=== PATIENT | male | born 1985 | race Caucasian/White ===

== ENCOUNTER 2018-06-15 19:54 | Emergency (ER) | payer BC ==
[2018-06-15] MEDS ORDERED: Ketorolac 60 MG/2 ML SDV IM ONE (20:34)
[2018-06-15] MEDS ORDERED: Cyclobenzaprine 10 MG Tab PO ONE (20:37)
[2018-06-15] MEDS ORDERED: Acetaminophen/oxyCODONE 325-5 MG Tab PO ONE ×2 (20:38→21:42)
--- NOTE | 2018-06-15 20:43 | EDM.PDOC ---
ED HPI GENERAL MEDICAL PROBLEM - General Chief Complaint: Back Pain or Injury Stated Complaint: POSSIBLE KIDNEY STONES Time Seen by Provider: 06/15/18 20:25 Source of Information: Reports: Patient, RN History Limitations: Reports: Other (no old records) - History of Present Illness INITIAL COMMENTS - FREE TEXT/NARRATIVE: 33 was attempting to lift an ice house and developed low back pain. Pain is worse with movement. No radiation down his legs. No bowel or bladder dysfunction. Has a hx of kidney stones and thought this felt similar. Is from [place]. No tx prior to arrival. Onset: Today Onset Date: 06/15/18 Onset Time: 17:00 Duration: Hour(s): Location: Reports: Back (low) Quality: Reports: Ache Severity: Moderate Improves with: Reports: Rest Worsens with: Reports: Movement Context: Reports: Other (see HPI) Associated Symptoms: Reports: No Other Symptoms Treatments CHARGER TESTER: Reports: Other (see below) (none) Lower Back Pain Score (Numeric/FACES): 3 - Related Data Allergies Allergy/AdvReac Type Severity Reaction Status Date / Time No Known Allergies Allergy Verified 06/15/18 20:25 Home Meds: Home Meds Pantoprazole Sodium [Protonix] 1 tab PO DAILY 06/15/18 [History] atorvaSTATin Calcium [Atorvastatin Calcium] 1 tab PO DAILY 06/15/18 [History] Past Medical History Cardiovascular History: Reports: High Cholesterol Gastrointestinal History: Reports: PUD Genitourinary History: Reports: Renal Calculus - Past Surgical History GI Surgical History: Reports: EGD Male Surgical History: Reports: Kidney Stone Extraction Musculoskeletal Surgical History: Reports: Shoulder Surgery, Other (See Below) Other Musculoskeletal Surgeries/Procedures:: bilateral shoulder surgery Social & Family History - Tobacco Use Smoking Status *Q: Never Smoker - Recreational Drug Use Recreational Drug Use: No ED ROS GENERAL - Review of Systems Review Of Systems: See Below Constitutional: Reports: No Symptoms HEENT: Reports: No Symptoms Respiratory: Reports: No Symptoms Cardiovascular: Reports: No Symptoms GI/Abdominal: Reports: No Symptoms : Reports: No Symptoms Musculoskeletal: Reports: Back Pain (low) Skin: Reports: No Symptoms Neurological: Reports: No Symptoms ED EXAM,LOWER BACK PAIN/INJURY - Physical Exam Exam: See Below Exam Limited By: No Limitations General Appearance: Alert, WD/WN, No Apparent Distress, Obese Eye Exam: Bilateral Eye: Normal Inspection Ears: Normal External Exam, Normal Canal, Hearing Grossly Normal Nose: Normal Inspection, No Blood Throat/Mouth: Normal Lips, Normal Oropharynx, Normal Voice, No Airway Compromise Head: Atraumatic, Normocephalic Neck: Normal Inspection Respiratory/Chest: No Respiratory Distress, Lungs Clear, Normal Breath Sounds, No Accessory Muscle Use Cardiovascular: Regular Rate, Rhythm Back Exam: Normal Inspection, Decreased Range of Motion, Muscle Spasm (lumbar, paraspinous muscles), Paraspinal Tenderness, Vertebral Tenderness, Other (no increase in pain with coughing). No: CVA Tenderness (R), CVA Tenderness (L) Extremities: Normal Inspection, Normal Range of Motion, Non-Tender, No Pedal Edema Neurological: Alert, Normal Mood/Affect, Normal Dorsiflexion, CN II-XII Intact, Normal Plantar Flexion, Normal Reflexes, No Motor/Sensory Deficits, Oriented x 3 Psychiatric: Normal Affect, Normal Mood Skin Exam: Warm, Dry, Intact, Normal Color, No Rash Lymphatic: No Adenopathy Course - Vital Signs Last Recorded V/S: Last Vital Signs Temp 36.3 C 06/15/18 20:24 Pulse 78 06/15/18 20:24 Resp 20 06/15/18 20:24 BP 125/85 06/15/18 20:24 Pulse Ox 98 06/15/18 20:24 - Orders/Labs/Meds Labs: Laboratory Tests 06/15/18 Range/Units 20:12 Urine Color Yellow Urine Appearance Clear Urine pH 5.0 (4.5-8.0) Ur Specific [place] 1.025 (1.008-1.030) Urine Protein Negative (NEGATIVE) mg/dL Urine Glucose (UA) Normal (NEGATIVE) mg/dL Urine Ketones Negative (NEGATIVE) mg/dL Urine Occult Blood Negative (NEGATIVE) Urine Nitrite Negative (NEGAITVE) Urine Bilirubin Negative (NEGATIVE) Urine Urobilinogen Normal (NORMAL) mg/dL Ur Leukocyte Esterase Negative (NEGATIVE) Urine RBC Not seen (0-5) Urine WBC Not seen (0-5) Ur Epithelial Cells Rare Amorphous Sediment Not seen Urine Bacteria Not seen Urine Mucus Not seen Meds: Medications Discontinued Medications Generic Name Dose Route Start Last Admin Trade Name Freq PRN Reason Stop Dose Admin Cyclobenzaprine HCl 10 mg 06/15/18 20:37 06/15/18 21:00 Flexeril PO 06/15/18 20:38 10 mg ONETIME ONE Administration Ketorolac Tromethamine 60 mg 06/15/18 20:34 06/15/18 21:00 Toradol IM 06/15/18 20:35 60 mg ONETIME ONE Administration Lidocaine 700 mg 06/15/18 21:42 06/15/18 22:16 Lidoderm 5% TOP 06/15/18 21:43 700 mg ONETIME ONE Administration Oxycodone/Acetaminophen 1 tab 06/15/18 20:38 06/15/18 20:59 Percocet 325-5 Mg PO 06/15/18 20:39 1 tab ONETIME ONE Administration Oxycodone/Acetaminophen 1 tab 06/15/18 21:42 06/15/18 22:17 Percocet 325-5 Mg PO 06/15/18 21:43 1 tab ONETIME ONE Administration Departure - Departure Time of Disposition: 22:35 Disposition: Home, Self-Care 01 Condition: Fair Clinical Impression: Lumbar spine strain Qualifiers: Encounter type: initial encounter Qualified Code(s): S39.012A - Strain of muscle, fascia and tendon of lower back, initial encounter - Discharge Information *PRESCRIPTION DRUG MONITORING PROGRAM REVIEWED*: No *COPY OF PRESCRIPTION DRUG MONITORING REPORT IN PATIENT MARIAH: No Instructions: Low Back Strain Referrals: PCP,None [Primary Care Provider] - Forms: ED Department Discharge Additional Instructions: Take ibuprofen 600 mg every 6 hrs as needed starting after 2 am. Percocet or acetaminophen as needed for added relief. Flexeril as directed. No driving. No lifting, bending or twisting. Recheck with your provider lucia.
[2018-06-15] MEDS ORDERED: Lidocaine 5% 700 MG Patch TOP ONE (21:42)
== END 2018-06-15 22:40 | disposition home or self-care (01) ==
LOC: JP.ED 19:54
DX: S39.012A Strain of muscle, fascia and tendon of lower back, initial encounter (principal); X58.XXXA Exposure to other specified factors, initial encounter
CPT/HCPCS: 81001; 96372; 99284; A9270; J1885